=== PATIENT | male | born 1995 | race American Indian/Alaskan Native ===

== ENCOUNTER 2019-07-25 04:35 | Emergency (ER) | payer SELFPAY ==
[2019-07-25] MEDS ORDERED: FAMOTIDINE 20 MG/2 ML INJ IV ONE (04:43)
[2019-07-25] MEDS ORDERED: ALUM-MAG HYDROXIDE-SIMETHICONE 200-200-20MG/5ML ORAL LIQD 30 ML PO ONE (04:43)
[2019-07-25] MEDS ORDERED: SODIUM CHLORIDE 0.9% 1000 ML 1,000 ML IV ONE ×2 (04:43→06:24)
--- NOTE | 2019-07-25 04:45 | Emergency Department Report ---
Chief Complaint: Chest Pain Stated Complaint: HYPERGLYCEMIA Time Seen by Provider: 07/25/19 04:44 - HPI History of Present Illness: 23-year-old gentleman, reported tight to diabetic, out of medication for 1 month, presenting with 2 complaints complaint#1, hyperglycemia, ran out of insulin one month ago. Does not know what pharmacy he goes to. Complaints #2, chest pain for one hour. Chest pain central and does not radiate anywhere. There is no vomiting or diaphoresis. Denies DVT and pulmonary embolus risk factors. Low risk by well's criteria. perc negative there is no facial droop. The tongue is midline. Extraocular movements are intact bilaterally. Speaking in full sentences. Hearing is grossly intact. 5 out of 5 strength bilateral upper and lower extremities. Sensation is intact to light touch bilateral upper and lower extremities. Afebrile with reassuring vital signs. Unlikely to be acute coronary syndrome. Check labs, EKG, give fluids, Pepcid, Maalox, reassess. MSE screening note: Focused history and physical exam performed. Due to findings the following was ordered: ED Disposition for MSE Condition: Stable
--- NOTE | 2019-07-25 05:03 | XRay Report ---
CHEST 1 VIEW INDICATION: cp. COMPARISON: none FINDINGS: SUPPORT DEVICES: None. HEART / MEDIASTINUM: No significant abnormality. LUNGS / PLEURA: No significant pulmonary or pleural abnormality. No pneumothorax. ADDITIONAL FINDINGS: IMPRESSION: 1. No acute findings. Signer Name: Reinier Henriquez MD Signed: 07/25/2019 4:59 AM Workstation Name: [id number]
[2019-07-25 05:18] LABS: Hematocrit 43.3 % (35.5-45.6); Hemoglobin 14.3 gm/dl (11.8-15.2); Mean Corpuscular HGB Conc 33 % (32-34); Mean Corpuscular Volume 84 fl (84-94); Platelet Count 213 K/mm3 (140-440); Red Blood Count 5.16 M/mm3 (3.65-5.03); Red Cell Distribution Width 13.8 % (13.2-15.2)
[2019-07-25 05:37] LABS: Alanine Aminotransferase 9 units/L (7-56); Albumin 4.5 g/dL (3.9-5); BUN/Creatinine Ratio 14; Blood Urea Nitrogen 11 mg/dL (9-20); Calcium 9.9 mg/dL (8.4-10.2); Hemolysis Index 8
[2019-07-25 05:38] LABS: INR 0.99 (0.87-1.13)
[2019-07-25] MEDS ORDERED: INSULIN REGULAR, HUMAN 100 UNITS/1 ML IV ONE (06:24)
--- NOTE | 2019-07-25 06:24 | Emergency Department Report ---
ED Chest Pain HPI - General Chief Complaint: Hyperglycemia Stated Complaint: HYPERGLYCEMIA Time Seen by Provider: 07/25/19 04:44 Source: patient, EMS Mode of arrival: Stretcher Limitations: No Limitations - History of Present Illness Initial Comments: This is a 23-year-old man who is complaining of chest pain at the moment of my encounter. He states I gets chest pain sometimes. He did not actually calm for chest pain. He came because he had run out of his insulin. His girlfriend keeps stating he does not eat well. Apparently he does take his metformin but has dietary indiscretion. He does not complain of dyspnea. He does not complain of anything at the time of my encounter. He is not following up with primary care physicians. He denies cough, pleuritic pain, exertional chest pain, leg pain and swelling or recent travel. He is actually asymptomatic at time of my arrival. He is already received a liter of fluid. MD Complaint: chest pain -: minutes(s) (seconds) Onset: during rest Pain Location: left chest Pain Radiation: none Severity: mild Quality: other (not Described) Consistency: now resolved (occasional) Improves With: nothing Worsens With: nothing re: denies: nausea, vomting, diaphoresis, dyspnea Other Symptoms: denies: cough, fever, syncope, rash, acid taste in mouth, leg swelling - Related Data Previous Rx's Medication Instructions Recorded Last Taken Type Insulin Regular, Human [Novolin R] 1 units IJ BID #1 vial 07/25/19 Unknown Rx metFORMIN [Glucophage] 850 mg PO BID #60 tablet 07/25/19 Unknown Rx Allergies Allergy/AdvReac Type Severity Reaction Status Date / Time No Known Allergies Allergy Unverified 07/25/19 05:02 Heart Score - HEART Score History: Slightly suspicious EKG: Normal Age: < 45 Risk factors: No known risk factors Troponin: < normal limit HEART Score: 0 - Critical Actions Critical Actions: 0-3 pts:0.9-1.7%risk of adverse cardiac event.Candidate for discharge ED Review of Systems ROS: Stated complaint: HYPERGLYCEMIA Other details as noted in HPI Constitutional: denies: chills, fever Eyes: denies: eye pain, eye discharge, vision change ENT: denies: ear pain, throat pain Respiratory: denies: cough, shortness of breath, wheezing Cardiovascular: chest pain. denies: palpitations Endocrine: no symptoms reported Gastrointestinal: denies: abdominal pain, nausea, diarrhea Genitourinary: denies: urgency, dysuria Musculoskeletal: denies: back pain, joint swelling, arthralgia Skin: denies: rash, lesions Neurological: denies: headache, weakness, paresthesias Psychiatric: denies: anxiety, depression Hematological/Lymphatic: denies: easy bleeding, easy bruising ED Past Medical Hx - Past Medical History Hx Diabetes: Yes - Social History Smoking Status: Current Every Day Smoker Substance Use Type: None - Medications Home Medications: Home Medications Medication Instructions Recorded Confirmed Last Taken Type Insulin Regular, Human [Novolin R] 1 units IJ BID #1 vial 07/25/19 Unknown Rx metFORMIN [Glucophage] 850 mg PO BID #60 tablet 07/25/19 Unknown Rx ED Physical Exam - General Limitations: No Limitations General appearance: alert, in no apparent distress - Head Head exam: Present: atraumatic, normocephalic - Eye Eye exam: Present: normal appearance. Absent: scleral icterus - ENT ENT exam: Present: mucous membranes moist - Neck Neck exam: Present: normal inspection - Respiratory Respiratory exam: Present: normal lung sounds bilaterally. Absent: respiratory distress - Cardiovascular Cardiovascular Exam: Present: regular rate, normal rhythm. Absent: systolic murmur, diastolic murmur, rubs, gallop - GI/Abdominal GI/Abdominal exam: Present: soft, normal bowel sounds. Absent: distended, tenderness, guarding, rebound, rigid - Rectal Rectal exam: Present: deferred - Extremities Exam Extremities exam: Present: normal inspection, full ROM, normal capillary refill. Absent: tenderness, pedal edema, joint swelling, calf tenderness - Back Exam Back exam: Present: normal inspection - Neurological Exam Neurological exam: Present: alert, oriented X3, CN II-XII intact. Absent: motor sensory deficit - Psychiatric Psychiatric exam: Present: normal affect, normal mood - Skin Skin exam: Present: warm, dry, intact, normal color. Absent: rash ED Course Vital Signs 07/25/19 07/25/19 07/25/19 04:45 05:01 06:00 Temperature 98.0 F Pulse Rate 92 H 94 H 90 Respiratory 21 14 15 Rate Blood Pressure 136/92 152/91 Blood Pressure 145/96 [Right] O2 Sat by Pulse 97 100 99 Oximetry 07/25/19 07:00 Temperature Pulse Rate 89 Respiratory 16 Rate Blood Pressure 133/90 Blood Pressure [Right] O2 Sat by Pulse 90 Oximetry - Reevaluation(s) Reevaluation #1: Given IV fluids and insulin. Patient did not complain of chest pain while here. His pulse oximetry was near-perfect. He was in no distress. He was not in DKA We will increase his metformin. We will prescribe regular insulin with a sliding scale. He will be referred to primary care with appropriate return mckayla chen. 07/25/19 07:27 07/25/19 07:27 ED Medical Decision Making - Lab Data Result diagrams: 07/25/19 04:56 07/25/19 04:56 Laboratory Results - last 24 hr 07/25/19 07/25/19 07/25/19 04:56 04:56 04:56 WBC 5.2 RBC 5.16 H Hgb 14.3 Hct 43.3 MCV 84 MCH 28 MCHC 33 RDW 13.8 Plt Count 213 PT 13.2 INR 0.99 VBG pH Sodium 135 L Potassium 4.3 Chloride 94.1 L Carbon Dioxide 27 Anion Gap 18 BUN 11 Creatinine 0.8 Estimated GFR > 60 BUN/Creatinine Ratio 14 Glucose 506 H* POC Glucose Calcium 9.9 Magnesium 1.90 Total Bilirubin 0.80 AST 11 ALT 9 Alkaline Phosphatase 56 Total Creatine Kinase 256 H Troponin T < 0.010 Total Protein 7.0 Albumin 4.5 Albumin/Globulin Ratio 1.8 07/25/19 07/25/19 04:56 05:16 WBC RBC Hgb Hct MCV MCH MCHC RDW Plt Count PT INR VBG pH 7.337 Sodium Potassium Chloride Carbon Dioxide Anion Gap BUN Creatinine Estimated GFR BUN/Creatinine Ratio Glucose POC Glucose 380 H Calcium Magnesium Total Bilirubin AST ALT Alkaline Phosphatase Total Creatine Kinase Troponin T Total Protein Albumin Albumin/Globulin Ratio - EKG Data -: EKG Interpreted by Me EKG shows normal: sinus rhythm Rate: normal - EKG Data Interpretation: other (probably repolarization occasional ectopic beat likely supraventricularischemic changes normal axis) - Radiology Data Radiology results: report reviewed NAF Critical care attestation.: If time is entered above; I have spent that time in minutes in the direct care of this critically ill patient, excluding procedure time. ED Disposition Clinical Impression: Uncontrolled insulin dependent diabetes mellitus, Atypical chest pain Disposition: - TO HOME OR SELFCARE Is pt being admited?: No Does the pt Need Aspirin: No Condition: Stable Instructions: Diabetes Mellitus Type 2 in Adults (ED), Chest Pain (ED) Additional Instructions: Increase your metformin dose. Regular insulin use with a sliding scale. You need an Accu-Chek machine to monitor your sugars. Return to the emergency department as directed for any acute change or problem. Follow-up with [facility]. Prescriptions: metFORMIN [Glucophage] 850 mg PO BID #60 tablet Insulin Regular, Human [Novolin R] 1 units IJ BID #1 vial Referrals: PRIMARY CARE, [Primary Care Provider] - 3-5 Days [facility] [Provider Group] - 3-5 Days Time of Disposition: 07:32
[2019-07-25 07:02] VITALS: BP 133/90
== END 2019-07-25 07:47 | disposition home or self-care (01) ==
LOC: ED 04:35
DX: R07.89 Other chest pain (principal); E11.65 Type 2 diabetes mellitus with hyperglycemia; F17.200 Nicotine dependence, unspecified, uncomplicated; Z79.899 Other long term (current) drug therapy
CPT/HCPCS: 36415; 71045; 80053; 82550; 82805; 82962; 83735; 84484; 85027; 85610; 93005; 93010; 96361; 96374; 96375; 99285; J7030; 96365; 96367; J1815

== ENCOUNTER 2019-07-28 12:18 | Emergency (ER) | payer SELFPAY ==
[2019-07-28] MEDS ORDERED: SODIUM CHLORIDE 0.9% 1000 ML 1,000 ML ONE (13:09)
[2019-07-28 13:45] LABS: Basophils % (Auto) 0.7 % (0.0-1.8); Eosinophils # (Auto) 0.1 K/mm3 (0.0-0.4); Eosinophils % (Auto) 2.3 % (0.0-4.3); Hematocrit 44.2 % (35.5-45.6); Hemoglobin 14.7 gm/dl (11.8-15.2); Lymphocytes # (Auto) 1.7 K/mm3 (1.2-5.4); Lymphocytes % (Auto) 33.8 % (13.4-35.0); Mean Corpuscular HGB Conc 33 % (32-34); Mean Corpuscular Volume 83 fl (84-94); Monocytes # (Auto) 0.5 K/mm3 (0.0-0.8); Platelet Count 224 K/mm3 (140-440); Red Blood Count 5.36 M/mm3 (3.65-5.03); Red Cell Distribution Width 13.5 % (13.2-15.2)
[2019-07-28 14:06] LABS: Alanine Aminotransferase 12 units/L (7-56); Albumin 4.5 g/dL (3.9-5); BUN/Creatinine Ratio 14; Blood Urea Nitrogen 10 mg/dL (9-20); Calcium 9.2 mg/dL (8.4-10.2); Hemolysis Index 57
[2019-07-28] MEDS ORDERED: INSULIN REGULAR, HUMAN 100 UNITS/1 ML IV ONE ×2 (14:08→15:30)
[2019-07-28] MEDS ORDERED: SODIUM CHLORIDE 0.9% 1000 ML 1,000 ML IV ONE (14:08)
[2019-07-28 14:09] LABS: Bilirubin,Urine NEG (Negative); Blood,Urine NEG (Negative); Color,Urine Colorless (Yellow); Protein,Urine <15 mg/dL mg/dL (Negative); RBC,Urine < 1.0 /HPF (0.0-6.0); Urobilinogen,Urine < 2.0 mg/dL (<2.0); WBC,Urine < 1.0 /HPF (0.0-6.0)
--- NOTE | 2019-07-28 14:13 | Emergency Department Report ---
ED General Adult HPI - General Chief complaint: Hyperglycemia Stated complaint: HYPERGLYCEMIA Time Seen by Provider: 07/28/19 12:43 Source: patient Mode of arrival: Stretcher Limitations: No Limitations - History of Present Illness Initial comments: Patient is a 23-year-old male presents emergency room with complaints of hyperglycemia. He states that he has generalized body aches, urinary frequency, increased thirst. He denies any fever, vomiting, diarrhea, shortness of breath, any other symptoms. Patient was evaluated in the emergency department 3 days ago and given prescription for metformin and insulin. He states that he did increase his metformin dose but did not fill the insulin. He states that he needs another prescription to have his insulin refilled. He states his only past medical history is type II diabetes. He denies any allergies medications. - Related Data Previous Rx's Medication Instructions Recorded Last Taken Type metFORMIN [Glucophage] 850 mg PO BID #60 tablet 07/25/19 Unknown Rx Insulin Regular, Human [Novolin R] 1 units IJ BID #1 vial 07/28/19 Unknown Rx Allergies Allergy/AdvReac Type Severity Reaction Status Date / Time No Known Allergies Allergy Unverified 07/25/19 05:02 ED Review of Systems ROS: Stated complaint: HYPERGLYCEMIA Other details as noted in HPI Comment: All other systems reviewed and negative ED Past Medical Hx - Past Medical History Previous Medical History?: Yes Hx Diabetes: Yes - Surgical History Past Surgical History?: No - Social History Smoking Status: Current Every Day Smoker Substance Use Type: None - Medications Home Medications: Home Medications Medication Instructions Recorded Confirmed Last Taken Type metFORMIN [Glucophage] 850 mg PO BID #60 tablet 07/25/19 07/28/19 Unknown Rx Insulin Regular, Human [Novolin R] 1 units IJ BID #1 vial 07/28/19 Unknown Rx ED Physical Exam - General Limitations: No Limitations General appearance: alert, in no apparent distress - Head Head exam: Present: atraumatic, normocephalic - Eye Eye exam: Present: normal appearance - ENT ENT exam: Present: mucous membranes moist - Respiratory Respiratory exam: Present: normal lung sounds bilaterally. Absent: respiratory distress, wheezes, rales, rhonchi, stridor, chest wall tenderness, accessory muscle use, decreased breath sounds, prolonged expiratory - Cardiovascular Cardiovascular Exam: Present: regular rate, normal rhythm, normal heart sounds. Absent: systolic murmur, diastolic murmur, rubs, gallop - GI/Abdominal GI/Abdominal exam: Present: soft, normal bowel sounds. Absent: distended, tenderness, guarding, rebound, rigid - Neurological Exam Neurological exam: Present: alert, oriented X3 - Psychiatric Psychiatric exam: Present: normal affect, normal mood - Skin Skin exam: Present: warm, dry, intact ED Course Vital Signs 07/28/19 07/28/19 12:28 16:37 Temperature 98.3 F Pulse Rate 84 94 H Respiratory 16 16 Rate Blood Pressure 135/89 Blood Pressure 141/84 [Left] O2 Sat by Pulse 100 96 Oximetry ED Medical Decision Making - Lab Data Result diagrams: 07/28/19 13:16 07/28/19 13:16 Lab Results 07/28/19 07/28/19 07/28/19 Range/Units 12:36 13:10 13:16 WBC 4.9 (4.5-11.0) K/mm3 RBC 5.36 H (3.65-5.03) M/mm3 Hgb 14.7 (11.8-15.2) gm/dl Hct 44.2 (35.5-45.6) % MCV 83 L (84-94) fl MCH 27 L (28-32) pg MCHC 33 (32-34) % RDW 13.5 (13.2-15.2) % Plt Count 224 (140-440) K/mm3 Lymph % (Auto) 33.8 (13.4-35.0) % [place] % (Auto) 11.0 H (0.0-7.3) % Eos % (Auto) 2.3 (0.0-4.3) % Baso % (Auto) 0.7 (0.0-1.8) % Lymph # 1.7 (1.2-5.4) K/mm3 [place] # 0.5 (0.0-0.8) K/mm3 Eos # 0.1 (0.0-0.4) K/mm3 Baso # 0.0 (0.0-0.1) K/mm3 Seg Neutrophils % 52.2 (40.0-70.0) % Seg Neutrophils # 2.6 (1.8-7.7) K/mm3 VBG pH (7.320-7.420) Sodium (137-145) mmol/L Potassium (3.6-5.0) mmol/L Chloride (98-107) mmol/L Carbon Dioxide (22-30) mmol/L Anion Gap mmol/L BUN (9-20) mg/dL Creatinine (0.8-1.5) mg/dL Estimated GFR ml/min BUN/Creatinine Ratio % Glucose (75-100) mg/dL POC Glucose 405 H (70-105) Calcium (8.4-10.2) mg/dL Total Bilirubin (0.1-1.2) mg/dL AST (5-40) units/L ALT (7-56) units/L Alkaline Phosphatase (35-129) units/L Total Protein (6.3-8.2) g/dL Albumin (3.9-5) g/dL Albumin/Globulin Ratio % Urine Color Colorless (Yellow) Urine Turbidity Clear (Clear) Urine pH 7.0 (5.0-7.0) Ur Specific [place] 1.030 (1.003-1.030) Urine Protein <15 mg/dl (Negative) mg/dL Urine Glucose (UA) >=500 (Negative) mg/dL Urine Ketones 20 (Negative) mg/dL Urine Blood Neg (Negative) Urine Nitrite Neg (Negative) Urine Bilirubin Neg (Negative) Urine Urobilinogen < 2.0 (<2.0) mg/dL Ur Leukocyte Esterase Neg (Negative) Urine WBC (Auto) < 1.0 (0.0-6.0) /HPF Urine RBC (Auto) < 1.0 (0.0-6.0) /HPF U Epithel Cells (Auto) 1.0 (0-13.0) /HPF 07/28/19 07/28/19 07/28/19 Range/Units 13:16 13:16 14:53 WBC (4.5-11.0) K/mm3 RBC (3.65-5.03) M/mm3 Hgb (11.8-15.2) gm/dl Hct (35.5-45.6) % MCV (84-94) fl MCH (28-32) pg MCHC (32-34) % RDW (13.2-15.2) % Plt Count (140-440) K/mm3 Lymph % (Auto) (13.4-35.0) % [place] % (Auto) (0.0-7.3) % Eos % (Auto) (0.0-4.3) % Baso % (Auto) (0.0-1.8) % Lymph # (1.2-5.4) K/mm3 [place] # (0.0-0.8) K/mm3 Eos # (0.0-0.4) K/mm3 Baso # (0.0-0.1) K/mm3 Seg Neutrophils % (40.0-70.0) % Seg Neutrophils # (1.8-7.7) K/mm3 VBG pH 7.341 (7.320-7.420) Sodium 133 L (137-145) mmol/L Potassium 4.5 (3.6-5.0) mmol/L Chloride 92.0 L (98-107) mmol/L Carbon Dioxide 23 (22-30) mmol/L Anion Gap 23 mmol/L BUN 10 (9-20) mg/dL Creatinine 0.7 L (0.8-1.5) mg/dL Estimated GFR > 60 ml/min BUN/Creatinine Ratio 14 % Glucose 483 H (75-100) mg/dL POC Glucose 378 H (70-105) Calcium 9.2 (8.4-10.2) mg/dL Total Bilirubin 1.10 (0.1-1.2) mg/dL AST 14 (5-40) units/L ALT 12 (7-56) units/L Alkaline Phosphatase 55 (35-129) units/L Total Protein 7.2 (6.3-8.2) g/dL Albumin 4.5 (3.9-5) g/dL Albumin/Globulin Ratio 1.7 % Urine Color (Yellow) Urine Turbidity (Clear) Urine pH (5.0-7.0) Ur Specific [place] (1.003-1.030) Urine Protein (Negative) mg/dL Urine Glucose (UA) (Negative) mg/dL Urine Ketones (Negative) mg/dL Urine Blood (Negative) Urine Nitrite (Negative) Urine Bilirubin (Negative) Urine Urobilinogen (<2.0) mg/dL Ur Leukocyte Esterase (Negative) Urine WBC (Auto) (0.0-6.0) /HPF Urine RBC (Auto) (0.0-6.0) /HPF U Epithel Cells (Auto) (0-13.0) /HPF 07/28/19 07/28/19 Range/Units 15:32 16:29 WBC (4.5-11.0) K/mm3 RBC (3.65-5.03) M/mm3 Hgb (11.8-15.2) gm/dl Hct (35.5-45.6) % MCV (84-94) fl MCH (28-32) pg MCHC (32-34) % RDW (13.2-15.2) % Plt Count (140-440) K/mm3 Lymph % (Auto) (13.4-35.0) % [place] % (Auto) (0.0-7.3) % Eos % (Auto) (0.0-4.3) % Baso % (Auto) (0.0-1.8) % Lymph # (1.2-5.4) K/mm3 [place] # (0.0-0.8) K/mm3 Eos # (0.0-0.4) K/mm3 Baso # (0.0-0.1) K/mm3 Seg Neutrophils % (40.0-70.0) % Seg Neutrophils # (1.8-7.7) K/mm3 VBG pH (7.320-7.420) Sodium (137-145) mmol/L Potassium (3.6-5.0) mmol/L Chloride (98-107) mmol/L Carbon Dioxide (22-30) mmol/L Anion Gap mmol/L BUN (9-20) mg/dL Creatinine (0.8-1.5) mg/dL Estimated GFR ml/min BUN/Creatinine Ratio % Glucose (75-100) mg/dL POC Glucose 381 H 342 H (70-105) Calcium (8.4-10.2) mg/dL Total Bilirubin (0.1-1.2) mg/dL AST (5-40) units/L ALT (7-56) units/L Alkaline Phosphatase (35-129) units/L Total Protein (6.3-8.2) g/dL Albumin (3.9-5) g/dL Albumin/Globulin Ratio % Urine Color (Yellow) Urine Turbidity (Clear) Urine pH (5.0-7.0) Ur Specific [place] (1.003-1.030) Urine Protein (Negative) mg/dL Urine Glucose (UA) (Negative) mg/dL Urine Ketones (Negative) mg/dL Urine Blood (Negative) Urine Nitrite (Negative) Urine Bilirubin (Negative) Urine Urobilinogen (<2.0) mg/dL Ur Leukocyte Esterase (Negative) Urine WBC (Auto) (0.0-6.0) /HPF Urine RBC (Auto) (0.0-6.0) /HPF U Epithel Cells (Auto) (0-13.0) /HPF - Medical Decision Making Patient is a 23-year-old male presents emergency room with complaints of hyperglycemia. He states that he has generalized body aches, urinary frequency, increased thirst. He denies any fever, vomiting, diarrhea, shortness of breath, any other symptoms. Patient was evaluated in the emergency department 3 days ago and given prescription for metformin and insulin. He states that he did increase his metformin dose but did not fill the insulin. He states that he needs another prescription to have his insulin refilled. He states his only past medical history is type II diabetes. He denies any allergies medications. vitals are normal. Initial blood glucose 483 which improved upon insulin administration. Labs with mild dehydration otherwise stable, pt given 1L of NS. venous pH is normal. No signs of DKA. No signs of infection. Discussed case with Dr. Park who agreed with plan and to discharge home with prescription for insulin. Patient given community resources and good rx card. pt given a sliding scale handout. advised pt to Please take medication as prescribed. Please use a glucose monitor 3 times a day. Please use your insulin based on a sliding scale. Please follow-up with a primary care doctor in the next 2-3 days. It is very important that you follow up with a primary care doctor for management of this chronic condition. Return to the emergency room for any new or worsening symptoms. Critical care attestation.: If time is entered above; I have spent that time in minutes in the direct care of this critically ill patient, excluding procedure time. ED Disposition Clinical Impression: Uncontrolled insulin dependent diabetes mellitus, Non compliance w medication regimen Disposition: DC-01 TO HOME OR SELFCARE Is pt being admited?: No Does the pt Need Aspirin: No Condition: Stable Instructions: Diabetes Mellitus Type 2 in Adults (ED) Additional Instructions: Please take medication as prescribed. Please use a glucose monitor 3 times a day. Please use your insulin based on a sliding scale. Please follow-up with a primary care doctor in the next 2-3 days. It is very important that you follow up with a primary care doctor for management of this chronic condition. Return to the emergency room for any new or worsening symptoms. Prescriptions: Insulin Regular, Human [Novolin R] 1 units IJ BID #1 vial Referrals: GEE ASENCIO MD [Staff Physician] - 2-3 Days [facility] [Outside] - 2-3 Days [facility] [Outside] - 2-3 Days Time of Disposition: 16:39 Print Language: DIVEHI
[2019-07-28 16:43] VITALS: BP 141/84
== END 2019-07-28 17:23 | disposition home or self-care (01) ==
LOC: ED 12:18
DX: E11.65 Type 2 diabetes mellitus with hyperglycemia (principal); F17.200 Nicotine dependence, unspecified, uncomplicated; Z91.14 Patient's other noncompliance with medication regimen; Z79.899 Other long term (current) drug therapy
CPT/HCPCS: 36415; 80053; 81001; 82805; 82962; 85025; 96361; 96374; 96376; 99283; J7030; J1815

== ENCOUNTER 2019-08-08 17:40 | Emergency (ER) | payer SELFPAY ==
--- NOTE | 2019-08-08 18:14 | Event Note ---
ED Screening Note Date of service: 08/08/19 Time: 18:13 ED Screening Note: Pt complains of right arm lacerations after punching a glass window x today This initial assessment/diagnostic orders/clinical plan/treatment(s) is/are subject to change based on patients health status, clinical progression and re- assessment by fellow clinical providers in the ED. Further treatment and workup at subsequent clinical providers discretion. Patient/guardian urged not to elope from the ED as their condition may be serious if not clinically assessed and managed. Initial orders include: tetanus vaccination XR
[2019-08-08 18:16] VITALS: BP 127/61
--- NOTE | 2019-08-08 19:06 | XRay Report ---
RIGHT HAND 3 VIEWS INDICATION / CLINICAL INFORMATION: MAIN: glass foreign body FROM TODAY LACERATION ONRT HAND AND FOREARM COMPARISON: None available. FINDINGS: BONES / JOINT(S): Fracture fifth metacarpal neck. No acute injury. No significant arthritis. SOFT TISSUES: No significant abnormality. ADDITIONAL FINDINGS: None. Signer Name: Kojo Holden MD Signed: 08/08/2019 7:02 PM Workstation Name: [id number]
--- NOTE | 2019-08-08 19:07 | XRay Report ---
RIGHT FOREARM 2 VIEWS INDICATION / CLINICAL INFORMATION: MAIN: glass foreign body FROM TODAY COMPARISON: None available. FINDINGS: BONES / JOINT(S): No acute fracture or subluxation. No significant arthritis. SOFT TISSUES: Soft tissue injury. No radiopaque foreign body identified. ADDITIONAL FINDINGS: None. Signer Name: Kojo Holden MD Signed: 08/08/2019 7:03 PM Workstation Name: [id number]
== END 2019-08-08 18:30 | disposition left against medical advice (07) ==
LOC: ED 17:40
DX: M79.601 Pain in right arm (principal); Z53.21 Procedure and treatment not carried out due to patient leaving prior to being seen by health care provider

== ENCOUNTER 2019-08-09 03:13 | Emergency (ER) | payer SELFPAY ==
[2019-08-09] MEDS ORDERED: ACETAMINOPHEN 500 MG TAB PO ONE (04:23)
[2019-08-09] MEDS ORDERED: LIDOCAINE-MPF (1%) 10 MG/1 ML VIAL 5 ML INFILTRATI ONE (04:23)
[2019-08-09] MEDS ORDERED: IBUPROFEN 600 MG TAB PO ONE (04:23)
[2019-08-09] MEDS ORDERED: SODIUM CHLORIDE 0.9% 1000 ML 1,000 ML IV ONE (04:23)
[2019-08-09] MEDS ORDERED: ceFAZolin 1 GM VIAL IM ONE (04:31)
[2019-08-09] MEDS ORDERED: NEOMY 3.5 MG/BACIT 400 UNITS/POLY B 5000 UNITS/GM OINT PACKET TP ONE ×2 (06:02→06:04)
--- NOTE | 2019-08-09 06:17 | Emergency Department Report ---
Upper Extremity - HPI Chief Complaint: Extremity Injury, Upper Stated Complaint: LACERTAION TO RT HAND Upper Extremity: Right Forearm (puncture wound of right forearm), Right Hand (right lateral puncture wound) Occurred When: Today (10) Mechanism: Crush (punched a glass window in anger) Severity: severe Symptoms: Yes Pain with Movement, Yes Deformity (right hand), Yes Limited Range of Movement (due to pain), Yes Laceration or Abrasion (dorsal lateral right hand; right forearm), No Numbness, No Weakness, No Swelling, No Bruising/Ecchymosis Other History: Patient is a 23-year-old -[place] male with a history of cet-vkfbuuo-lvruszqki diabetes who presents to the ED with complaint of acute onset right forearm and right hand pain with bleeding puncture wounds after he punched a glass window in anger about 10 hours ago. Patient was initially evaluated in this ED about 8 hours ago but left AMA before returning to the ED about 2 hours ago. In the ED, patient is alert and oriented 3 and is not in distress but appears in pain. Right forearm x-ray from ileo-visit showed no acute fractures or subluxations. Right hand x-ray from the earlier ED visit shows a displaced distal right fifth metacarpal fracture at the neck over the fifth metacarpal carpal. Patient denies numbness or tingling or weakness of right hand or right wrist. Patient states that he is not up-to-date with tetanus vaccination would like the vaccination be administered. Patient otherwise denies fall, nausea, vomiting, chest pain or shortness of breath, neck pain or change in vision and syncope or headache. ED Review of Systems ROS: Stated complaint: LACERTAION TO RT HAND Other details as noted in HPI Constitutional: denies: chills, fever Eyes: denies: eye pain, eye discharge, vision change ENT: denies: ear pain, throat pain Respiratory: denies: cough, shortness of breath, wheezing Cardiovascular: denies: chest pain, palpitations Endocrine: no symptoms reported Gastrointestinal: denies: abdominal pain, nausea, diarrhea Genitourinary: denies: urgency, dysuria Musculoskeletal: joint swelling (right hand), arthralgia (right hand pain, swelling with bleeding right hand and forearm lacerations). denies: back pain Skin: other (Bleeding right hand and forearm puncture wounds). denies: rash, lesions Neurological: denies: headache, weakness, paresthesias Psychiatric: denies: anxiety, depression Hematological/Lymphatic: denies: easy bleeding, easy bruising ED Past Medical Hx - Past Medical History Previous Medical History?: Yes Hx Diabetes: Yes - Surgical History Past Surgical History?: No - Social History Smoking Status: Current Every Day Smoker Substance Use Type: None - Medications Home Medications: Home Medications Medication Instructions Recorded Confirmed Last Taken Type metFORMIN [Glucophage] 850 mg PO BID #60 tablet 07/25/19 07/28/19 Unknown Rx Insulin Regular, Human [Novolin R] 1 units IJ BID #1 vial 07/28/19 Unknown Rx Acetaminophen/Codeine [Tylenol 1 tab PO Q6H PRN #12 tab 08/09/19 Unknown Rx /Codeine # 3 tab] Ibuprofen [Motrin] 800 mg PO Q8HR PRN #24 tablet 08/09/19 Unknown Rx cephALEXin [Keflex] 500 mg PO Q6HR #40 capsule 08/09/19 Unknown Rx Upper Extremity Exam - Exam General: Vital signs noted. No distress. Alert and acting appropriately. Head and Torso: No HEENT Abnormality, No Neck Tenderness, No Chest/Lungs Abnormality, No Abdominal Tenderness, No Back Tenderness Shoulder Exam: Yes Normal Range of Motion in Shoulder, No Shoulder Tenderness, No Clavicle Tenderness, No Shoulder Deformity, No AC Joint Tenderness Arm Exam: No Arm/Humerus Tenderness, No Arm Deformity Elbow: Yes Normal Range of Motion in Elbow, No Elbow Tenderness, No Elbow Deformity Forearm: Yes Forearm Tenderness (due to a bleeding distal right forearm puncture wound), No Forearm Deformity, No Pain with Pronation, No Pain with Supination Wrist: Yes Normal ROM in Wrist, No Wrist Tenderness, No Wrist Deformity, No Snuffbox Tenderness, No Pain with Axial Thumb Compression Hand: Yes Hand Tenderness (dorsal lateral right hand due to bleeding puncture wound), Yes Hand Deformity (distal right 5th MCP ), Yes Digit Tenderness (right 4th and 5th digits tenderness), No Normal ROM in Digit(s) (Limited ROM of right 4th and 5th digits due to pain), No Digit(s) Deformity, No Tendon Dysfunction CMS Exam: Yes Broken Skin (right forearm, dorsalateral right hand from puncture wounds), Yes Normal Distal Pulses, Yes Normal Capillary Refill, Yes Normal Distal Sensation Hand L/R Back: 1 - Palpable tenderness, deformity and mild swelling due to bleeding dorsolateral right hand puncture wound ED Course Vital Signs 08/09/19 08/09/19 08/09/19 03:20 05:20 05:22 Temperature 98.2 F Pulse Rate 105 H Respiratory 18 16 16 Rate Blood Pressure 146/85 O2 Sat by Pulse 98 Oximetry ED Medical Decision Making - Radiology Data Radiology results: report reviewed, image reviewed Findings [facility] [address] [place] [address] XRay Report Signed Patient: JUSTINE LOPEZ MR#: [id number] : 1995 Acct:[id number] Age/Sex: 23 / M ADM Date: 08/08/19 Loc: ED Attending Dr: Ordering Physician: NATHALIA CALL Date of Service: 08/08/19 Procedure(s): XR hand 3+V RT Accession Number(s): [id number] cc: NATHALIA CALL Fluoro Time In Minutes: RIGHT HAND 3 VIEWS INDICATION / CLINICAL INFORMATION: MAIN: glass foreign body FROM TODAY LACERATION ONRT HAND AND FOREARM COMPARISON: None available. FINDINGS: BONES / JOINT(S): Fracture fifth metacarpal neck. No acute injury. No significant arthritis. SOFT TISSUES: No significant abnormality. ADDITIONAL FINDINGS: None. Signer Name: Kojo Holden MD Signed: 08/08/2019 7:02 PM Workstation Name: [id number] Transcribed By: ES Dictated By: Kojo Holden MD Electronically Authenticated By: Kojo Holden MD Signed Date/Time: 08/08/191901 DD/ 00 TD/TT: - Medical Decision Making This is a 23 yo AA male with a h/o NIDDM who presented to the ED via EMS with c/o acute onset persistent severe right hand and right forearm pain from bleeding puncture wounds that he sustained after punching a glass window in anger over 10 hours ago. According to the records, the patient had been to this ED about 10 hours ago with the same complaint, had right forearm and right hand x-rays performed but left the ED AMA only to return a dose later via EMS with the same complaint. When asked about his previous visit and why he left the ED 8 hours ago, patient denied ever coming to the ED for any treatment in the last 12-24 hours. When confronted with the record of the x-rays performed during that visit including a right forearm and right hand x-rays, the same complaints for which he presented to the ED during this visit, the patient grudgingly remar ked "I think I may have been the one who came to the ED for the visit." On presentation to the ED, patient's reported blood sugar was 447 mg/dL given that the patient had just eaten prior to arrival in the ED. Patient received normal saline 1 L IV bolus en-route to the ED via EMS. Repeat fingerstick [id number] blood glucose after normal saline 1 L IV bolus administration shows glucose level of 352 mg/dL. Additional normal saline 1 L IV bolus was administered. Based on the most recent right hand and right forearm x-rays performed 8 hours prior to arrival, no new x-rays were performed. The right forearm x-rays from the previous ED visit showed no acute fractures or subluxations. The right hand x-ray from the most recent previous ED visit 8 hours ago showed displaced displaced fracture of distal fifth metacarpal at the neck. No other acute injury. No significant arthritis. Patient was treated for pain in the ED and also received booster tetanus vaccination and Ancef 1 g intramuscular injection. The puncture wounds of right forearm and right hand were cleaned thoroughly and the patient was advised on the importance of closely in the puncture wounds on his right hand and right forearm given his diabetic history. Patient verbalized understanding but refused any procedure splinting of the right hand. Despite several prescriptions, when he finally agreed, when the laceration procedure commenced, the patient will have a history hand and stated he did not want to proceed with the procedure. Patient is right hand and right forearm puncture wounds were cleaned and Neosporin applied to the wounds. Patient then had the right hand splinted with will not gutter splint and the patient discharged home on oral antibiotics and given a referral to the orthopedic surgeon Dr. Rider for follow-up. Patient is advised to contact Dr. Rider's office first thing on 08/10/2019 morning to schedule a follow- up appointment. Patient was otherwise advised to return to the ED immediately if symptoms get worse. - Differential Diagnosis hand fracture; lacerations; forearm abrasions; Hyperglycemia Critical care attestation.: If time is entered above; I have spent that time in minutes in the direct care of this critically ill patient, excluding procedure time. ED Disposition Clinical Impression: Open displaced fracture of neck of right fifth metacarpal bone Qualifiers: Encounter type: initial encounter Qualified Code(s): S62.336B - Displaced fracture of neck of fifth metacarpal bone, right hand, initial encounter for open fracture Contusion of right hand including fingers Qualifiers: Encounter type: initial encounter Qualified Code(s): S60.221A - Contusion of right hand, initial encounter; S60.00XA - Contusion of unspecified finger without damage to nail, initial encounter Laceration of right forearm Qualifiers: Encounter type: initial encounter Qualified Code(s): S51.811A - Laceration without foreign body of right forearm, initial encounter Laceration of right hand without foreign body Qualifiers: Encounter type: initial encounter Qualified Code(s): S61.411A - Laceration without foreign body of right hand, initial encounter Hyperglycemia due to type 2 diabetes mellitus Qualifiers: Diabetes mellitus prison insulin use: without emt intermediate use Qualified Code(s): E11.65 - Type 2 diabetes mellitus with hyperglycemia Disposition: DC-01 TO HOME OR SELFCARE Is pt being admited?: No Does the pt Need Aspirin: No Condition: Stable Instructions: Diabetes Mellitus Type 2 in Adults (ED), Boxer Fracture (ED), Hand Fracture (ED), Laceration (ED) Additional Instructions: Take medication with food, drink plenty of fluids and follow-up with the orthopedic surgeon supervisor publications Dr. Rider for further evaluation. Please contact Dr. Rider's office first thing in the morning on 08/10/2019 to schedule follow-up appointment. Return to the ED immediately if symptoms get worse. Prescriptions: cephALEXin [Keflex] 500 mg PO Q6HR #40 capsule Ibuprofen [Motrin] 800 mg PO Q8HR PRN #24 tablet PRN Reason: Pain , Severe (7-10) Acetaminophen/Codeine [Tylenol /Codeine # 3 tab] 1 tab PO Q6H PRN #12 tab PRN Reason: Pain , Severe (7-10) Referrals: AKILA RIDER MD [Staff Physician] - [facility] (CONTACT DR. RIDER'S OFFICE FIRST THING IN THE MORNING ON Saturday08/10/2019 TO SCHEDULE A FOLLOW UP APPOI NTMENT) Time of Disposition: 06:56 Print Language: ECUADORE[place]
[2019-08-09 07:14] VITALS: BP 135/68
== END 2019-08-09 07:16 | disposition home or self-care (01) ==
LOC: ED 03:13
DX: S62.336B Displaced fracture of neck of fifth metacarpal bone, right hand, initial encounter for open fracture (principal); S51.811A Laceration without foreign body of right forearm, initial encounter; S61.411A Laceration without foreign body of right hand, initial encounter; E11.65 Type 2 diabetes mellitus with hyperglycemia; F17.200 Nicotine dependence, unspecified, uncomplicated; Z79.4 Long term (current) use of insulin; Z79.899 Other long term (current) drug therapy; W20.8XXA Other cause of strike by thrown, projected or falling object, initial encounter; Y93.89 Activity, other specified; Y92.89 Other specified places as the place of occurrence of the external cause; Y99.8 Other external cause status
CPT/HCPCS: 29125; 82962; 96360; 96361; 96372; 99284; J0690; J7030; A6250